=== PATIENT | female | born 1990 | race Caucasian/White ===

== ENCOUNTER 2017-07-27 08:27 | Emergency (ER) | payer OTHER ==
[~2017-07-27] VITALS: Wt 81.8 kg
[~2017-07-27 08:27] MED LIST: AMOX500C2 PO
[2017-07-27] MEDS ORDERED: AMOX1TAB10 PO (08:57)
[2017-07-27] MEDS ORDERED: IBUP-1542 PO (08:57)
[2017-07-27] MEDS ORDERED: MED4DP PO (08:57)
--- NOTE | 2017-07-27 16:21 | ERD ---
ER Documentation Chief Complaint Date/Time DATE: 07/27/17 TIME: 16:18 Chief Complaint earache HPI This patient is a 26-year-old female presenting to the emergency department with complaints of left ear pain ongoing intermittently for the past 3 days. Symptoms are worsening. She rates the pain 9 out of 10 on the pain scale. Associated symptoms include sore throat. She denies fevers, chills, pain behind the ear, or other symptoms currently. ROS All systems reviewed and are negative except as per history of present illness. Medications Home Meds Active Scripts Methylprednisolone* (Medrol* DOSE PACK) 4 Mg/Dose-Pack Tab.ds.pk, 4 MG PO . DIRECTED, #1 PACKET Prov:MAYA LYNNE PA-C 07/27/17 Ibuprofen* (Motrin*) 600 Mg Tab, 600 MG PO Q6, #30 TAB Prov:MAYA LYNNE PA-C 07/27/17 Amoxicillin/Potassium Clav (Amox-Clav 875-125 mg Tablet) 875-125 mg Tab, 1 TAB PO BID for 10 Days, #20 TAB Prov:MAYA LYNNE PA-C 07/27/17 Amoxicillin* (Amoxicillin*) 500 Mg Cap, 500 MG PO TID for 7 Days, CAP Prov:TEODORA DUQUE DO 02/13/16 Allergies Allergies: Coded Allergies: No Known Allergy (Verified , 02/13/16) PMhx/Soc History of Surgery: Yes ( X 1) Anesthesia Reaction: No Hx Neurological Disorder: No Hx Respiratory Disorders: No Hx Cardiac Disorders: Yes (HTN) Hx Psychiatric Problems: No Hx Miscellaneous Medical Probl: No Hx Alcohol Use: No Hx Substance Use: No Hx Tobacco Use: No Physical Exam Vitals Vital Signs Date Time Temp Pulse Resp B/P Pulse Ox O2 Delivery O2 Flow Rate FiO2 07/27/17 08:28 97.8 91 20 142/77 97 Physical Exam Const: Nontoxic, well-appearing female in no acute distress. Head: Atraumatic Eyes: Normal Conjunctiva ENT: Normal External Ears, Nose and Mouth.The left tympanic membrane is erythematous but nonbulging. No sign of rupture. Mild tenderness palpation of the mastoid process on the left.There is no tonsillar hypertrophy, erythema, uvular deviation, the airway is clear. No exudate noted. Skin: No petechiae or rashes Back: No midline or flank tenderness Ext: No cyanosis, or edema Neur: Awake and alert Psych: Normal Mood and Affect Procedures/MDM 26-year-old female presents to the emergency department with complaints of left earache for the past 3 days. History and physical examination is consistent with otitis externa, otitis media, and possible early uncomplicated mild mastoiditis on the left. The patient was afebrile. I do not feel she required admission or further workup in the department. She was stable for outpatient management with a prescription for ibuprofen, Medrol Dosepak, and Augmentin. She agreed with the discharge plan and diagnosis. Low suspicion for sepsis or other emergent or life-threatening pathology at time of discharge. Strict ER return precautions were discussed. Close follow-up with the primary care physician was advised. Departure Diagnosis: Primary Impression: Otitis media Otitis media type: unspecified Chronicity: unspecified Laterality: left Qualified Code: H66.92 - Left otitis media, unspecified chronicity, unspecified otitis media type Additional Impression: Otitis externa Otitis externa type: unspecified type Chronicity: acute Laterality: left Qualified Code: H60.502 - Acute otitis externa of left ear, unspecified type Condition: Fair Patient Instructions: Otitis Media, Abx Tx (Adult), External Ear Infection ( Adult) Referrals: [facility] YOU HAVE RECEIVED A MEDICAL SCREENING EXAM AND THE RESULTS INDICATE THAT YOU DO NOT HAVE A CONDITION THAT REQUIRES URGENT TREATMENT IN THE EMERGENCY DEPARTMENT. FURTHER EVALUATION AND TREATMENT OF YOUR CONDITION CAN WAIT UNTIL YOU ARE SEEN IN YOUR DOCTORS OFFICE WITHIN THE NEXT 1-2 DAYS. IT IS YOUR RESPONSIBILITY TO MAKE AN APPOINTMENT FOR FOLOW-UP CARE. IF YOU HAVE A PRIMARY DOCTOR --you should call your primary doctor and schedule an appointment IF YOU DO NOT HAVE A PRIMARY DOCTOR YOU CAN CALL OUR PHYSICIAN REFERRAL HOTLINE AT IF YOU CAN NOT AFFORD TO SEE A PHYSICIAN YOU CAN CHOSE FROM THE FOLLOWING [facility] [address]. [facility] [address] [facility] [address] [facility] [address] [facility]. [facility] [address] [facility]. [facility] [address] Additional Instructions: Follow up with your PCP within the next 1-3 days for a repeat evaluation. If you require a referral to a specialist, your Primary Care Provider may be able to provide this for you. In most patient cases, a referral is not required. If you have further questions regarding this matter, please ask your Primary Care Provider. Return the the emergency department immediately if symptoms worsen or change. If you have any questions regarding medications, ask your pharmacist or us before you leave. If any adverse reactions, occur while taking your medications, discontinue the treatment and return to the emergency department immediately. If any new or worsening symptoms, uncontrolled fevers, or other unexplained symptoms occur, return to the emergency department immediately. Take your medications as directed, and complete the entire course of treatment. MAYA LYNNE PA-C Jul 27, 2017 16:21
== END 2017-07-27 09:11 | disposition home or self-care (01) ==
LOC: FTE 08:27
DX: H66.92 Otitis media, unspecified, left ear (principal); H60.502 Unspecified acute noninfective otitis externa, left ear; I10 Essential (primary) hypertension
CPT/HCPCS: 99284

== ENCOUNTER 2017-10-26 17:35 | Emergency (ER) | payer OTHER ==
[~2017-10-26] VITALS: Wt 96.2 kg
[~2017-10-26 17:35] MED LIST changes: +AMOX1TAB10 PO; +IBUP-1542 PO; +MED4DP PO
[2017-10-26] MEDS ORDERED: DEXAMETHASONE 4 MG TAB PO ONE (21:00)
[2017-10-26] MEDS ORDERED: DEXAMETHASONE 2 MG TAB PO ONE (21:00)
[2017-10-26] MEDS ORDERED: DIPHENHYDRAMINE 50 MG CAP PO ONE (21:00)
[2017-10-26 21:51] LABS: BASOPHILS % 0.4 % (0.0-2.0); EOSINOPHILS # 0.2 10^3/ul (0.0-0.5); EOSINOPHILS % 2.5 % (0.0-7.0); HEMOGLOBIN 14.4 g/dl (12.0-16.0); LYMPHOCYTES # 2.6 10^3/ul (0.8-2.9); LYMPHOCYTES % 31.4 % (15.0-51.0); MEAN CORPUSCULAR HEMOGLOBIN 30.4 pg (29.0-33.0); MEAN CORPUSCULAR HGB CONC 34.3 g/dl (32.0-37.0); MEAN CORPUSCULAR VOLUME 88.6 fl (82.0-101.0); MEAN PLATELET VOLUME 11.5 fl (7.4-10.4); MONOCYTE # 0.8 10^3/ul (0.3-0.9); NEUTROPHIL # 4.7 10^3/ul (1.6-7.5); NEUTROPHILS % 56.6 % (39.0-77.0); PLATELET COUNT 235 10^3/UL (140-415); RED BLOOD COUNT 4.74 10^6/ul (4.20-5.40); WHITE BLOOD COUNT 8.3 10^3/ul (4.8-10.8)
[2017-10-26 22:06] LABS: ADD UMIC YES; UR ASCORBIC ACID NEGATIVE (NEGATIVE); UR BACTERIA FEW /HPF (NONE SEEN); UR BILIRUBIN (Dip) NEGATIVE (NEGATIVE); UR BLOOD (Dip) 2+ mg/dL (NEGATIVE); UR CLARITY CLOUDY (CLEAR); UR COLOR YELLOW (YELLOW); UR GLUCOSE (Dip) NEGATIVE (NEGATIVE); UR KETONES (Dip) NEGATIVE (NEGATIVE); UR LEUKOCYTE ESTERASE (Dip) NEGATIVE Leu/ul (NEGATIVE); UR MUCUS FEW /HPF (NONE SEEN); UR NITRITE (Dip) POSITIVE (NEGATIVE); UR RBC 21 /HPF (0-5); UR SPECIFIC GRAVITY (Dip) 1.017 (1.003-1.030); UR SQUAMOUS EPITHELIAL CELL MODERATE /HPF (FEW); UR TOTAL PROTEIN (Dip) NEGATIVE (NEGATIVE); UR UROBILINOGEN (Dip) NEGATIVE (NEGATIVE)
--- NOTE | 2017-10-26 22:25 | RADRPT ---
PROCEDURE: Noncontrast CT facial bones. CLINICAL INDICATION: Right-sided ear pain. Query mastoiditis. TECHNIQUE: Noncontrast CT of the facial bones was obtained. Coronal and sagittal re-formations were provided. The administered radiation dose was CTDI vol = 29.44 mGy, DLP = 523.43 mGy-cm. One or mo re of the following dose reduction techniques were used: Automated exposure control, Adjustment of t he mA and/or kV according to patient size, or Use of iterative reconstruction technique. COMPARISON: There are no similar studies submitted for comparison. FINDINGS: OSSEOUS STRUCTURES: There is no acute fracture. A portion of the left posterior mastoid air cells ar e excluded from the image volume, limiting evaluation. The visualized mastoid air cells and middle e ar cavities are well pneumatized without evidence of fluid or soft tissue. The middle ear ossicles a ppear intact. ORBITS: The bilateral globes are intact.There is no orbital hematoma. SINUSES: The frontal sinuses are clear. The bilateral frontal recesses are patent. There is mild muc osal thickening in the ethmoid sinuses bilaterally. The sphenoid sinuses are clear. The right spheno ethmoidal recesses patent. The left sphenoethmoidal recess is obscured by mucosal thickening. There is mild mucosal thickening in the right maxillary sinus and moderate mucosal thickening in the left maxillary sinus. The right infundibulum is narrowed by mucosal thickening. The left infundibulum is completely obscured by mucosal thickening. An accessory left maxillary ostium is severely narrowed b y mucosal thickening. No air-fluid levels are seen. SKULL: The visualized portions of the brain are unremarkable. There is periapical lucency of the right maxillary molar tooth #2 ( series 2, image 115). Prominent left level 1a, bilateral level 1b, and bilateral level 2a lymph nodes with normal fatty hi la with left level 2a lymph node measuring up to 1.3 cm short axis (series 4, image 11) are noted an d are likely reactive in etiology. Prominent bilaterally symmetric submandibular glands (partially imaged) and parotid glands without s urrounding inflammatory changes are noted. There are prominent bilaterally symmetric palatine tonsils with right palatine tonsilloliths, nonspe cific but possibly representing sequelae of prior tonsillitis and a potential source of otalgia. IMPRESSION: 1. No acute fracture. 2. The left posterior mastoid air cells are excluded from the images, limiting evaluation. The visua lized mastoid air cells and middle ear cavities are clear, without evidence of fluid or soft tissue. 3. Mild mucosal thickening in the bilateral ethmoid sinuses and right maxillary sinus. Moderate muco [place] thickening in the left maxillary sinus. No air-fluid levels. 4. Periapical lucency of the right maxillary molar tooth #2, suggesting periodontal disease. Recomme nd dental consultation. 5. Prominent left level 1a, bilateral level 1b, and bilateral level 2a lymph nodes with normal morph ology and fatty luca with left level 2a lymph node measuring up to 1.3 cm short axis; likely reactiv e in etiology. 6. Prominent bilateral submandibular and parotid glands. Query Sjogren syndrome. 7. Prominent bilaterally symmetric palatine tonsils with right palatine tonsilloliths which are nons pecific, but may represent sequelae of prior tonsillitis and a potential source of otalgia. RPTAT: HR[facility] Physician Kaylee Date Time Electronically viewed and signed by Physician Kaylee on 10/26/2017 22:25 UBALDO/
[2017-10-26 22:34] LABS: ALBUMIN 4.4 g/dl (3.3-4.9); ALBUMIN/GLOBULIN RATIO 1.02; BILIRUBIN,INDIRECT 0.6 mg/dl (0-1.1); BILIRUBIN,TOTAL 0.6 mg/dl (0.2-1.3); CALCIUM 9.6 mg/dl (8.4-10.2); CREATININE 0.69 mg/dl (0.44-1.00); POTASSIUM 3.8 mmol/L (3.5-5.1); TOTAL PROTEIN 8.7 g/dl (6.1-8.1)
[2017-10-26] MEDS ORDERED: IBUP-1542 PO (23:08)
[2017-10-26] MEDS ORDERED: OFLO5DRO7 BOTH EARS (23:08)
[2017-10-26] MEDS ORDERED: EPIN0.3P4 INJ (23:08)
[2017-10-26] MEDS ORDERED: NITR-58 PO (23:12)
[2017-10-26 23:36] VITALS: BP 124/76; PULSE 87; RESP 18; TEMP 98.8
--- NOTE | 2017-10-27 01:11 | ERD ---
ER Documentation Chief Complaint Chief Complaint ST,TREVOR EAR ACHES HPI 27-year-old female complaining of sore throat and fever 3 days. T-max at home 102.3. Patient stated that she is having trouble swallow because of pain. She took ibuprofen at home for pain and fever, last dose was 5 hours ago. She also has a cough and runny nose. In addition patient complains of bilateral ear pain. States that she had ear infection not so long ago, and she was given amoxicillin at that time. Denies shortness of breath. Denies abdominal pain, vomiting, or diarrhea. Patient reports lower lip swollen for the past 4 days. She ate shrimp and oysters immediately before the onset of the lip swelling. Patient stated that she last ate lower extremity years ago, when she had swelling in her throat and vomiting. She thought she had food poisoning at that time. Denies shortness of breath at this time. Patient is reports occasional dysuria. ROS All systems reviewed and are negative except as per history of present illness. Medications Home Meds Active Scripts Nitrofurantoin Monohyd Macrocr* (Macrobid*) 100 Mg Capsr, 100 MG PO BID for 5 Days, CAP Prov:KAYLA DURANT NP 10/26/17 Epinephrine (Epipen 2-Lang) 0.3 Mg/0.3 Ml Pen.injctr, 1 EA INJ ONCE Y for ALLERGIC REACTION, #1 EA Prov:KAYLA DURANT NP 10/26/17 Ofloxacin Otic (Ofloxacin Otic) 5 Ml Drops, 5 DROP BOTH EARS BID for 10 Days, # 1 BOTTLE Prov:KAYLA DURANT. [employer] 10/26/17 Ibuprofen* (Motrin*) 600 Mg Tab, 600 MG PO Q6H Y for PAIN AND OR ELEVATED TEMP, #30 TAB Prov:KAYLA DURANT [employer] 10/26/17 Methylprednisolone* (Medrol* DOSE PACK) 4 Mg/Dose-Pack Tab.ds.pk, 4 MG PO . DIRECTED, #1 PACKET Prov:MAYA LYNNE PA-C 07/27/17 Ibuprofen* (Motrin*) 600 Mg Tab, 600 MG PO Q6, #30 TAB Prov:MAYA LYNNE PA-C 07/27/17 Amoxicillin/Potassium Clav (Amox-Clav 875-125 mg Tablet) 875-125 mg Tab, 1 TAB PO BID for 10 Days, #20 TAB Prov:MAYA LYNNE PA-C 07/27/17 Amoxicillin* (Amoxicillin*) 500 Mg Cap, 500 MG PO TID for 7 Days, CAP Prov:BRUCEKARLENE MONZONNAV SEGURA 02/13/16 Allergies Allergies: Coded Allergies: No Known Allergy (Verified , 02/13/16) PMhx/Soc Medical and Surgical Hx: pt denies Medical Hx History of Surgery: Yes ( X 1) Anesthesia Reaction: No Hx Neurological Disorder: No Hx Respiratory Disorders: No Hx Cardiac Disorders: No Hx Psychiatric Problems: No Hx Miscellaneous Medical Probl: No Hx Alcohol Use: No Hx Substance Use: No Hx Tobacco Use: No Smoking Status: Never smoker Physical Exam Vitals Vital Signs Date Time Temp Pulse Resp B/P Pulse Ox O2 Delivery O2 Flow Rate FiO2 10/26/17 23:36 98.8 87 18 124/76 100 Room Air 10/26/17 17:47 98.8 89 18 126/76 99 Physical Exam General: Well-developed, well-nourished, conscious and coherent, in no distress Skin: Warm and dry without rash, good texture and turgor Head: Normocephalic without evidence of trauma Eyes: Sclera and conjunctivae normal; pupils equal, round, and reactive to light; extraocular movements are intact Ears: Bilateral ear canal erythema and narrowing, with tragal tenderness. Tympanic membranes are clear. Right postauricular tenderness. Nose/Face: Without rhinorrhea Mouth/throat: Mucous membranes are moist. Posterior pharynx clear without erythema or exudates. Lower lip angioedema noted. Neck: Supple without meningismus or adenopathy. Carotids are equal. Trachea midline. No bruits or JVD Chest: Normal AP diameter. Good expansion without retractions. Nontender. Lungs are clear to auscultate bilaterally with good tidal volume Heart: Regular rate and rhythm. No murmur, rub, or gallops heard Abdomen: Soft and nontender without masses, guarding, or rebound. Bowel sounds are active. No hepatosplenomegaly Back: Without spinal or CVA tenderness Pelvis: Nontender to palpation and stable to compression Extremities: Full range of motion. Good strength bilaterally. No clubbing, cyanosis, or edema. Peripheral pulses are intact. Sensation intact Neuro: Alert and oriented 4, GCS 15. Cranial nerves grossly intact. Motor and sensory exams nonfocal. Moves all extremities. Speech clear. Gait normal Result Diagram: 10/26/17211810/26/172118 Results 24 hrs Laboratory Tests Test 10/26/17 20:51 10/26/17 21:19 Urine Color YELLOW Urine Clarity CLOUDY Urine pH 5.0 Urine Specific [place] 1.017 Urine Ketones NEGATIVEmg/dL Urine Nitrite POSITIVEmg/dL Urine Bilirubin NEGATIVEmg/dL Urine Urobilinogen NEGATIVEmg/dL Urine Leukocyte Esterase NEGATIVELeu/ul Urine Microscopic RBC 21/HPF Urine Microscopic WBC 1/HPF Urine Squamous Epithelial Cells MODERATE/HPF Urine Bacteria FEW/HPF Urine Mucus FEW/HPF Urine Hemoglobin 2+mg/dL Urine Glucose NEGATIVEmg/dL Urine Total Protein NEGATIVEmg/dl White Blood Count 8.310^3/ul Red Blood Count 4.7410^6/ul Hemoglobin 14.4g/dl Hematocrit 42.0% Mean Corpuscular Volume 88.6fl Mean Corpuscular Hemoglobin 30.4pg Mean Corpuscular Hemoglobin Concent 34.3g/dl Red Cell Distribution Width 12.0% Platelet Count 76708^3/UL Mean Platelet Volume 11.5fl Neutrophils % 56.6% Lymphocytes % 31.4% Monocytes % 9.0% Eosinophils % 2.5% Basophils % 0.4% Nucleated Red Blood Cells % 0.0/100WBC Neutrophils # 4.710^3/ul Lymphocytes # 2.610^3/ul Monocytes # 0.810^3/ul Eosinophils # 0.210^3/ul Basophils # 0.010^3/ul Nucleated Red Blood Cells # 0.010^3/ul Sodium Level 144mmol/L Potassium Level 3.8mmol/L Chloride Level 104mmol/L Carbon Dioxide Level 28mmol/L Anion Gap 16 Blood Urea Nitrogen 10mg/dl Creatinine 0.69mg/dl Glucose Level 105mg/dl Calcium Level 9.6mg/dl Total Bilirubin 0.6mg/dl Direct Bilirubin 0.00mg/dl Indirect Bilirubin 0.6mg/dl Aspartate Amino Transf (AST/SGOT) 34IU/L Alanine Aminotransferase (ALT/SGPT) 48IU/L Alkaline Phosphatase 98IU/L Total Protein 8.7g/dl Albumin 4.4g/dl Globulin 4.30g/dl Albumin/Globulin Ratio 1.02 Current Medications Medications (Trade) Dose Ordered Sig/Ambar Route PRN Reason Start Time Stop Time Status Last Admin Dose Admin Dexamethasone (Decadron) 8 mg ONCE ONCE PO 10/26/17 21:00 10/26/17 21:01 DC 10/26/17 22:10 Dexamethasone (Decadron) 2 mg ONCE ONCE PO 10/26/17 21:00 10/26/17 21:01 DC 10/26/17 22:09 Diphenhydramine HCl (Benadryl) 50 mg ONCE ONCE PO 10/26/17 21:00 10/26/17 21:01 DC 10/26/17 21:54 Procedures/MDM Well-appearing 27-year-old female presented ED with multiple complaints. Patient complaining of bilateral ear pain 3 days. Bilateral otitis externa is noted on exam. She also has postauricular tenderness, I have concern for possible mastoiditis. CT was obtained, no sign of mastoiditis on CT. Patient is noted to have tonsillolith on CT, likely cause of patient's throat and neck pain. While examining her, I noticed that she has angioedema on her lower lip. Patient reports eating shellfish immediately before the onset of angioedema. I suspect patient may have shellfish allergy. Dexamethasone and Benadryl given to the patient in the ED. After medications, patient's angioedema has improved. No sign of anaphylaxis. CBC, CMP, UA were obtained. CBC and CMP are unremarkable. UA is noted to have positive nitrite, otherwise unremarkable. Since patient reports occasional dysuria, I will go ahead treat her for UTI. Patient appears well, stable for discharge and outpatient management. Medical decision making shared with patient and family. Education provided to patient and family. Patient and family expressed understanding of the plan. Medications on discharge: Otitis externa, tonsillolith, angioedema, UTI. Follow-up: Primary care provider in 2-3 days or return to ED if worse. Disclaimer: Inadvertent spelling and grammatical errors are likely due to EHR/ dictation software use and do not reflect on the overall quality of patient care. Also, please note that the electronic time recorded on this note does not necessarily reflect the actual time of the patient encounter. Departure Diagnosis: Primary Impression: Otitis externa Otitis externa type: diffuse Chronicity: acute Laterality: bilateral Qualified Code: H60.313 - Acute diffuse otitis externa of both ears Additional Impressions: Tonsillolith Angioedema Encounter type: initial encounter Qualified Code: T78.3XXA - Angioedema, initial encounter UTI (urinary tract infection) Condition: Stable Patient Instructions: Urinary Tract Infections in Women, Angioedema, External Ear Infection (Adult) Referrals: [facility] YOU HAVE RECEIVED A MEDICAL SCREENING EXAM AND THE RESULTS INDICATE THAT YOU DO NOT HAVE A CONDITION THAT REQUIRES URGENT TREATMENT IN THE EMERGENCY DEPARTMENT. FURTHER EVALUATION AND TREATMENT OF YOUR CONDITION CAN WAIT UNTIL YOU ARE SEEN IN YOUR DOCTORS OFFICE WITHIN THE NEXT 1-2 DAYS. IT IS YOUR RESPONSIBILITY TO MAKE AN APPOINTMENT FOR FOLOW-UP CARE. IF YOU HAVE A PRIMARY DOCTOR --you should call your primary doctor and schedule an appointment IF YOU DO NOT HAVE A PRIMARY DOCTOR YOU CAN CALL OUR PHYSICIAN REFERRAL HOTLINE AT IF YOU CAN NOT AFFORD TO SEE A PHYSICIAN YOU CAN CHOSE FROM THE FOLLOWING [facility] [address] [facility]. [facility] [address] [facility] [facility] [address] [facility] [facility] [address] [facility] [facility] [address] [facility]. [facility]. [address] Additional Instructions: Call your primary care doctor TOMORROW for an appointment during the next 2-3 days.See the doctor sooner or return here if your condition worsens before your appointment time. KAYLA DURANT NP Oct 27, 2017 01:08
== END 2017-10-26 23:36 | disposition home or self-care (01) ==
LOC: FTE 17:35
DX: H60.313 Diffuse otitis externa, bilateral (principal); J35.8 Other chronic diseases of tonsils and adenoids; T78.3XXA Angioneurotic edema, initial encounter; N39.0 Urinary tract infection, site not specified
CPT/HCPCS: 70486; 80053; 81001; 85025; Z7502; Z7610